=== PATIENT | male | born 1960 | race Caucasian/White ===

== ENCOUNTER 2016-12-01 11:21 | Emergency (ER) | payer BC ==
[~2016-12-01] VITALS: Ht 172.7 cm; Wt 80.2 kg
[2016-12-01 11:22] VITALS: BP 118/78
== END 2016-12-01 11:54 | disposition home or self-care (01) ==
LOC: ED 11:30
DX: Z76.0 Encounter for issue of repeat prescription (principal); E78.00 Pure hypercholesterolemia, unspecified; I25.10 Atherosclerotic heart disease of native coronary artery without angina pectoris; M54.5 Low back pain; I10 Essential (primary) hypertension; G89.29 Other chronic pain
CPT/HCPCS: 99283

== ENCOUNTER 2017-06-11 05:19 | Emergency (ER) | payer BC ==
[~2017-06-11] VITALS: Ht 172.7 cm; Wt 79.8 kg
[2017-06-11] MEDS ORDERED: ALBUTEROL/IPRATROPIUM 2.5MG/0.5MG, 3 ML ONE (05:46)
[2017-06-11] MEDS ORDERED: LISI5TAB7 PO (05:55)
[2017-06-11] MEDS ORDERED: ATOR10TA9 PO (05:55)
[2017-06-11] MEDS ORDERED: CLOP75TA52 PO (05:55)
[2017-06-11] MEDS ORDERED: HYDR-3240 PO (05:55)
[2017-06-11 06:00] LABS: WHITE BLOOD COUNT 11.4 x10^3/uL (3.4-10)
[2017-06-11] MEDS ORDERED: ALBUTEROL/IPRATROPIUM 2.5MG/0.5MG, 3 ML NPPB SCH (06:00)
[2017-06-11 06:15] LABS: BLOOD UREA NITROGEN 7 mg/dL (7-18)
[2017-06-11 06:26] LABS: IS PT STATUS REG ER OR PRE ER? YES
[2017-06-11 06:45] VITALS: BP 129/74
== END 2017-06-11 06:47 | disposition home or self-care (01) ==
LOC: ED 06:30
DX: J44.1 Chronic obstructive pulmonary disease with (acute) exacerbation (principal); J20.8 Acute bronchitis due to other specified organisms; B96.89 Other specified bacterial agents as the cause of diseases classified elsewhere; F17.210 Nicotine dependence, cigarettes, uncomplicated; I10 Essential (primary) hypertension; I25.10 Atherosclerotic heart disease of native coronary artery without angina pectoris; Z95.2 Presence of prosthetic heart valve
CPT/HCPCS: 36415; 71020; 80048; 82040; 83880; 84484; 85025; 93005; 94640; 99285; J7512; J7620

== ENCOUNTER 2019-03-17 04:21 | Emergency (ER) | payer BC, MEDICAID, OTHER ==
[~2019-03-17] VITALS: Ht 167.6 cm; Wt 75.0 kg
[2019-03-17 07:17] VITALS: BP 166/79
== END 2019-03-17 08:03 | disposition home or self-care (01) ==
LOC: ED 07:55
DX: N45.2 Orchitis (principal); N45.1 Epididymitis; E78.5 Hyperlipidemia, unspecified; I10 Essential (primary) hypertension; J44.9 Chronic obstructive pulmonary disease, unspecified; I25.10 Atherosclerotic heart disease of native coronary artery without angina pectoris; E78.00 Pure hypercholesterolemia, unspecified
CPT/HCPCS: 36415; 76870; 80048; 81003; 82040; 85025; 87491; 87591; 96372; 99284; J0696; J1885